=== PATIENT | female | born 1955 | race Caucasian/White ===

== ENCOUNTER 2020-04-04 00:28 | Outpatient (CLI) | payer MEDICARE, SELFPAY ==
[2020-04-04 19:08] LABS: SARS-CoV-2 RNA PCR Negative
== END 2020-04-04 00:29 | disposition home or self-care (01) ==
LOC: ANHCOVIDDT 00:29
PROVIDERS: PCP Nurse Practitioner Adult Health; Visit Provider Internal Medicine Gastroenterology
DX: Z01.812 Encounter for preprocedural laboratory examination (principal); Z11.59 Encounter for screening for other viral diseases
CPT/HCPCS: 87635; C9803; U0003

== ENCOUNTER 2020-04-06 01:04 | Day surgery (SDC) | payer MEDICARE, SELFPAY ==
[2020-03-30 11:25] VITALS: BMI 26.2
[2020-04-06 09:51] VITALS: BP 157/71; PULSE 73; RESP 18; TEMP 36.9; O2SAT 98; BMI 26.2
[2020-04-06] MEDS: LACTATED RINGERS 1,000 ML 150 ML IV CONT (09:59)
--- NOTE | 2020-04-06 10:16 | PM.HPGS ---
History of Present Illness History of Present Illness Consent: Risks, benefits, and alternatives have been discussed and questions answered. Patient agrees to proceed with procedure. Chief complaint: Fam Hx Colon Ca Narrative: Addie Biswas is a 64 year old W female referred for screening colonoscopy secondary family history of colon cancer in her father diagnosed in his 50s. Patient has had 2 previous colonoscopies last 1 6 years ago no polyps were visualized. Patient is asymptomatic. [facility] Past Medical History Medical History (Updated 04/06/20 @ 10:17 by Alfonso Hart MD) Arthritis Depression Hypertension Surgical History Surgical History (Updated 04/06/20 @ 10:17 by Kashif Chavez MD) Status post cholecystectomy Meds Home Medications and Allergies Home Medications Medication Instructions Recorded Confirmed Type atorvastatin 10 mg PO DAILY 03/30/20 03/30/20 History hydrochlorothiazide 12.5 mg PO DAILY 03/30/20 03/30/20 History lisinopril 40 mg PO DAILY 03/30/20 03/30/20 History Allergies Allergy/AdvReac Type Severity Reaction Status Date / Time No Known Allergies Allergy Unknown Verified 04/06/20 09:49 Vital Signs Vital Signs - 24 hr 04/06/20 09:51 Temperature 36.9 C Pulse Rate 73 Respiratory Rate 18 Blood Pressure 157/71 H Pulse Oximetry 98 Exam Const: Orientation/consciousness: patient oriented x3 Resp: Auscultation: clear to auscultation bilaterally Cardio: Rate: regular rate Rhythm: regular rhythm Heart sounds: no murmurs GI: GI Palp: Yes Soft to palpation, No Tenderness to palpation present (GI), Yes No hepatosplenomegaly present and No Palpable mass present Auscultation: normal bowel sounds Neuro: General: patient oriented x3 and no focal motor deficits Extrem: General: no pedal edema Assessment and Plan Additional Plan screening colonoscopy secondary family history colon cancer in her father less than 60 years of age
--- NOTE | 2020-04-06 10:17 | WPDANESEPPF ---
Anes - Initial Pre Proc Eval Procedure: Operation Date: 04/06/20 11:00 Proposed Procedures p Screening Colonoscopy - Kashif Chavez MD Date/Time: 04/06/20 10:17 Surgeon: Kashif Chavez MD Pre Op Diagnosis: Fam Hx Colon Ca Patient Data Age: 64 Gender: F Height: 5 ft 1 in Weight: 62.8 kg Last Vital Signs Temp 98.5 F 04/06/20 09:51 Pulse 73 04/06/20 09:51 Resp 18 04/06/20 09:51 BP 157/71 H 04/06/20 09:51 Pulse Ox 98 04/06/20 09:51 Allergies Allergy/AdvReac Type Severity Reaction Status Date / Time No Known Allergies Allergy Unknown Verified 04/06/20 09:49 Home Medications Medication Instructions Recorded Confirmed Type atorvastatin 10 mg PO DAILY 03/30/20 03/30/20 History hydrochlorothiazide 12.5 mg PO DAILY 03/30/20 03/30/20 History lisinopril 40 mg PO DAILY 03/30/20 03/30/20 History Patient hx anesthesia problems: none Family hx anesthesia problems: none [facility] Past Medical History Medical History (Updated 04/06/20 @ 10:17 by Alfonso Hart MD) Arthritis Depression Hypertension Surgical History Surgical History (Updated 04/06/20 @ 10:17 by Kashif Chavez MD) Status post cholecystectomy Anes - Eval Final PreProcedure Day of Procedure 04/06/20 10:17 Patient weight: normal Heart: regular rate and rhythm Lungs: clear to auscultation Airway: Mallampati scale class II Neurological: alert and oriented Last oral intake: >/= 8 hours ASA classification: II Emergent: no Anesthetic plan: proceed Anesthesia type and monitoring: general GIVS and standard monitoring Informed Consent: The patient's anesthetic plan and its attendant risks and benefits were discussed with the patient/family/POA. Questions were solicited and answers provided to the satisfaction of the patient/family/POA.
[2020-04-06 11:14] VITALS: BP 151/77; PULSE 69; RESP 18; O2SAT 100
[2020-04-06 11:24] VITALS: BP 155/75; PULSE 63; RESP 18; O2SAT 100
[2020-04-06 11:31] VITALS: BP 152/73; PULSE 63; RESP 18; O2SAT 100
== END 2020-04-06 11:40 | disposition home or self-care (01) ==
PROVIDERS: PCP Nurse Practitioner Adult Health; Visit Provider Internal Medicine Gastroenterology
PROC: 0DJD8ZZ Inspection of Lower Intestinal Tract, Via Natural or Artificial Opening Endoscopic (ICD-10-PCS; CPT 45378; principal; 2020-04-06 11:00)
DX: Z12.11 Encounter for screening for malignant neoplasm of colon (principal); D12.3 Benign neoplasm of transverse colon; K57.30 Diverticulosis of large intestine without perforation or abscess without bleeding; K64.8 Other hemorrhoids; Z80.0 Family history of malignant neoplasm of digestive organs; I10 Essential (primary) hypertension; F32.9 Major depressive disorder, single episode, unspecified
CPT/HCPCS: 45385; 88305; J2704; J7120

== ENCOUNTER 2020-09-05 10:10 | Outpatient (NON) | payer MEDICARE, SELFPAY ==
[2020-09-06 12:24] LABS: SARS-CoV-2 RNA PCR Negative
== END 2020-09-05 10:11 ==
LOC: ANHCOVIDDT 10:11
PROVIDERS: PCP Nurse Practitioner Adult Health; Visit Provider Nurse Practitioner Adult Health
DX: R05 Cough (principal); Z20.828 Contact with and (suspected) exposure to other viral communicable diseases
CPT/HCPCS: 87635; C9803; U0003

== ENCOUNTER → 2021-01-05 10:16 | Outpatient (CLI) | payer MEDICARE, SELFPAY ==
--- NOTE | ~2021-01-05 | MM_ITS ---
EXAMINATION: MM screening [facility] BI w demarco HISTORY: Screening TECHNIQUE: Craniocaudal and mediolateral oblique 3-D tomosynthesis images were obtained and synthetic 2-D images were generated. CAD analysis was submitted and interpreted. COMPARISON: Comparison to multiple prior studies sequentially, with oldest reviewed study dated 07/23. BREAST PARENCHYMAL COMPOSITION: There are scattered areas of fibroglandular density. FINDINGS: There is no evidence of suspicious mass, calcification, or architectural distortion to sugg est malignancy in either breast. There has been no suspicious interval change. IMPRESSION: 1. No mammographic evidence of malignancy. 2. Recommend routine screening mammography in one year. BI-RADS Category 1: Negative Reviewed, dictated and finalized at location A.
== END ==
PROVIDERS: PCP Nurse Practitioner Adult Health; Visit Provider Nurse Practitioner Adult Health
DX: Z12.31 Encounter for screening mammogram for malignant neoplasm of breast (principal)
CPT/HCPCS: 77063; 77067

== ENCOUNTER → 2022-01-31 10:10 | Outpatient (CLI) | payer MEDICARE, SELFPAY ==
--- NOTE | ~2022-01-31 | DEXA_ITS ---
Bone Density Report Name: STACY ALEGRIA Age: 66 Sex: Female Ethnicity: White Date of : 1955 Indication: osteopenia; postmenopausal Referring Provider: IvanArely Study: Bone densitometry was performed. Exam Date: January 31, 2022 Accession number: [id number] Bone Density: Region BMD T-score Z-score Classification AP Spine (L1-L4) 0.846 -1.8 0.2 Osteopenia Femoral Neck (Left) 0.709 -1.3 0.4 Osteopenia Total Hip (Left) 0.854 -0.7 0.7 Normal Femoral Neck (Right) 0.734 -1.0 0.7 Normal Total Hip (Right) 0.854 -0.7 0.7 Normal Total Hip Mean 0.854 -0.7 0.7 Normal World Health Organization criteria for BMD impression classify patients as: Normal (T-score at or above -1.0), Osteopenia (T-score between -1.0 and -2.5), or Osteoporosis (T-score at or below -2.5). 10-year Fracture Risk(1): Major Osteoporotic Fracture 9.1% Hip Fracture 0.9% Reported Risk Factors: [place] (), Neck BMD=0.709, BMI=26.6 (1) FRAX(R) Version 3.08. Fracture probability calculated for an untreated patient. Fracture probability may be lower if the patient has received treatment. Previous Exams: Region Exam Age BMD T-score BMD Change BMD Change Date g/cm2 vs Baseline vs Previous AP Spine(L1-L4) 01/31/2022 66 0.846 -1.8 -0.050* 0.001 08/08/2016 61 0.845 -1.8 -0.051* -0.051* 09/07/2008 53 0.896 -1.4 Total Hip(Left) 01/31/2022 66 0.854 -0.7 -0.034* -0.013 08/08/2016 61 0.867 -0.6 -0.022 -0.022 09/07/2008 53 0.889 -0.4 Total Hip(Right) 01/31/2022 66 0.854 -0.7 -0.042* -0.025 08/08/2016 61 0.878 -0.5 -0.017 -0.017 09/07/2008 53 0.896 -0.4 *Denotes significance at 95% confidence level, LSC for AP Spine = 0.022 g/cm2, LSC for Total Hip = 0.027 g/cm2 Clinical Information Provided by Patient: Has used the following medications: Vitamin D Patient maximum height was 61.5 Menopause Age: 46 No regular weight bearing exercise Drinks caffeinated beverages Onset of menses at age 12 Number of children 2 Impression: The patient has low bone mass, based on the Total Spine T-score. The patient has an estimated ten-year risk of hip fracture of 0.9% and an estimated ten-year risk of major fracture of 9.1%, based on the WHO FRAX algorithm. No significant bone loss was observed. Discussion: BONE DENSITY IS LOW AT ONE
--- NOTE | ~2022-01-31 | MM_ITS ---
EXAMINATION: MM screening [facility] BI w demarco HISTORY: Screening TECHNIQUE: Craniocaudal and mediolateral oblique 3-D tomosynthesis images were obtained and synthetic 2-D images were generated. CAD analysis was submitted and interpreted. COMPARISON: Comparison to multiple prior studies sequentially, with oldest reviewed study dated 07/23. BREAST PARENCHYMAL COMPOSITION: There are scattered areas of fibroglandular density. FINDINGS: There is no evidence of suspicious mass, calcification, or architectural distortion to sugg est malignancy in either breast. There has been no suspicious interval change. IMPRESSION: 1. No mammographic evidence of malignancy. 2. Recommend routine screening mammography in one year. BI-RADS Category 1: Negative Reviewed, dictated and finalized at location A.
== END ==
PROVIDERS: PCP Internal Medicine; Visit Provider Internal Medicine
DX: Z12.31 Encounter for screening mammogram for malignant neoplasm of breast (principal); M85.88 Other specified disorders of bone density and structure, other site; M85.852 Other specified disorders of bone density and structure, left thigh; Z78.0 Asymptomatic menopausal state; Z13.820 Encounter for screening for osteoporosis
CPT/HCPCS: 77063; 77067; 77080

== ENCOUNTER 2023-09-24 18:12 | Emergency (ER) | payer MEDICARE, SELFPAY ==
--- NOTE | ~2023-09-24 | XR_ITS ---
EXAMINATION: XR chest 2V DATE: 09/24/2023 18:48 INDICATION: Cough and wheezing. TECHNIQUE: Frontal and lateral views of the chest were obtained. COMPARISON: Chest 2 views 07/30/2015 FINDINGS: There is no pneumonia, pleural effusion, or pneumothorax. The heart size is normal. Surgica l clips in the right upper quadrant are likely from cholecystectomy. IMPRESSION: 1. No acute cardiopulmonary disease. Reviewed, dictated and finalized at location E. 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
--- NOTE | 2023-09-24 18:19 | ED.URI ---
HPI - URI/Sore Throat General Chief Complaint: Upper Respiratory Infection Stated Complaint: cough, wheezing Time Seen by Provider: 09/24/23 18:17 Source: patient Mode of arrival: ambulatory Limitations: no limitations History of Present Illness HPI Narrative: Addie is a 68-year-old female patient presenting to the clinic today with complaints of cough and wheezing since . She reports she is having some slight shortness of breath with a very bad cough. Cough is nonproductive. She denies any known fever or chills. Temperature is 38.1? C in the clinic today MD elicited complaint: cough and other (Wheezing) Related Data Home Medications Medication Instructions Recorded Confirmed atorvastatin 10 mg tablet 10 mg PO DAILY 03/30/20 09/24/23 hydrochlorothiazide 12.5 mg capsule 12.5 mg PO DAILY 03/30/20 09/24/23 lisinopril 40 mg tablet 40 mg PO DAILY 03/30/20 09/24/23 Allergies Allergy/AdvReac Type Severity Reaction Status Date / Time No Known Allergies Allergy Unknown Verified 09/24/23 18:32 Review of Systems Review of Systems: Pertinent positives per HPI. Patient denies any fever, chills, rash, headache, visual changes, dizziness,shortness of breath, chest pain, palpitations, nausea, vomiting, diarrhea, constipation, abdominal pain, or any urinary issues. PMFSH Past Medical History Medical History Arthritis Depression Hypertension Surgical History Surgical History Status post cholecystectomy Comments At the time of my signature, I reviewed and agree with the nursing past medical, surgical, social, and family history. There is no relevant family history pertinent to the patient complaint. Exam Narrative: General: Well-developed, well nourished, in no apparent distress Head: Normocephalic, atraumatic Eyes: Pupils equally round and reactive to light bilaterally, EOM intact, sclera and conjunctive clear, no discharge, lids normal Ears: TMs intact and clear, ear canals clear, no drainage, grossly hearing normal. Nose: Nares patent, no discharge, no inflammation, no sinus tenderness. Mouth: Oral pharynx without lesions or masses, good dentition, MMM. Neck: Supple, trachea midline, no enlargement of anterior or posterior cervical nodes, no thyroid masses or goiter palpable. Cardio: Regular rate and rhythm, s1 and s2 normal, no murmur appreciated. Resp: Rhonchi and wheezing throughout lung tian, no rales or rubs Course Course Emergency Course: Portions of this record may have been created with voice recognition software. Level of Care: Express Care Visit Vital Signs Vital signs: Vital signs reviewed MDM - URI/Sore Throat MDM Narrative Medical decision making narrative: At the time of visit patient is resting comfortably on the exam table. Patient appears to be nontoxic. Chest x-rays negative for any sign pneumonia. I suspect patient has acute bronchitis. Prescription for prednisone, albuterol inhaler, supportive measures were discussed with the patient and they voiced understanding discharge instructions and agrees to treatment plan. Return precautions reviewed Differential Diagnosis Differential diagnosis: Likely upper respiratory infection, otitis media, sinusitis, viral infection, bronchitis, influenza, pharyngitis and other (COVID) Discharge Plan Discharge Clinical Impression: Bronchitis Patient Disposition: Home, Self-Care Condition: Stable Instructions: Antibiotic Form, Acute Bronchitis (ED) Additional Instructions: Chest x-rays negative for any sign of pneumonia. Take prescription medications only as prescribed-prednisone, albuterol inhaler, and mucinex Increase fluids and stay well hydrated Tylenol/motrin for pain/fever Flonase and OTC antihistamines as directed Vicks vapor rub to open sinuses Sinus rinses for congestion
[2023-09-24 18:28] VITALS: BP 191/80; PULSE 107; RESP 16; TEMP 38.1; O2SAT 96
[2023-09-24 18:30] VITALS: PULSE 107; RESP 22; O2SAT 96
[2023-09-24] MEDS: ALBUTEROL SULFATE NEB 2.5 MG/3 ML INH INHALATION (18:49)
[2023-09-24] MEDS: IPRATROPIUM BR 0.02% INH SOLN 0.5 MG/2.5 ML VIAL INHALATION (18:50)
[2023-09-24 19:15] VITALS: PULSE 100; RESP 16; O2SAT 98
== END 2023-09-24 19:26 | disposition home or self-care (01) ==
PROVIDERS: Emergency Provider Nurse Practitioner Family; PCP Internal Medicine
DX: J40 Bronchitis, not specified as acute or chronic (principal); I10 Essential (primary) hypertension; M19.90 Unspecified osteoarthritis, unspecified site
CPT/HCPCS: 71046; 94640; 99213; G0463

== ENCOUNTER 2024-02-25 08:35 | Outpatient (CLI) | payer MEDICARE, SELFPAY ==
--- NOTE | ~2024-02-25 | DEXA_ITS ---
Bone Density Report Name: STACY ALEGRIA Age: 68 Sex: Female Ethnicity: White Date of : 1955 Indication: postmenopausal; screening for osteoporosis; history of glucocorticoids; Referring Provider: LARRYGINI Study: Bone densitometry was performed. Exam Date: February 25, 2024 Accession number: [id number] Bone Density: Region BMD T-score Z-score Classification AP Spine(L1-L4) 0.884 -1.5 0.7 Osteopenia Femoral Neck (Left) 0.715 -1.2 0.6 Osteopenia Total Hip (Left) 0.908 -0.3 1.3 Normal Femoral Neck (Right) 0.720 -1.2 0.7 Osteopenia Total Hip (Right) 0.947 0.0 1.6 Normal Total Hip Mean 0.928 -0.2 1.5 Normal World Health Organization criteria for BMD impression classify patients as: Normal (T-score at or above -1.0), Osteopenia (T-score between -1.0 and -2.5), or Osteoporosis (T-score at or below -2.5). 10-year Fracture Risk(1): Major Osteoporotic Fracture 15% Hip Fracture 2.0% Reported Risk Factors: [place] (), Neck BMD=0.715, BMI=28.0, glucocorticoids (1) FRAX(R) Version 3.08. Fracture probability calculated for an untreated patient. Fracture probability may be lower if the patient has received treatment. Clinical Information Provided by Patient: Has taken Glucocorticoids Has used the following medications: Vitamin D, Calcium Patient maximum height was 61.5 Menopause Age: 46 No regular weight bearing exercise Does not regularly consume dairy products Drinks caffeinated beverages Onset of menses at age 12 Number of children 2 Impression: The patient has low bone mass, based on the Total Spine T-score. The patient has an estimated ten-year risk of hip fracture of 2% and an estimated ten-year risk of major fracture of 15%, based on the WHO FRAX algorithm. The patient has risk factors, including: history of glucocorticoid therapy. Discussion: BONE DENSITY IS LOW AT ONE OR MORE SKELETAL SITES. This patient's lowest T-score is low at one or more skeletal sites. It meets the World Health Organization's (WHO) criteria for ?low bone mass? (T-score between -1.0 and -2.5). The patient's 10-year risk of fracture as calculated by FRAX is less than the threshold where pharmacological therapy is recommended by the National Osteoporosis Foundation (NOF). However, all treatment decisions require clinical judgment and consideration of individual patient factors, including patient preferences, comorbidities, previous drug use, risk factors not captured in the FRAX model (e.g., frailty, falls, vitamin D deficiency, increased bone turnover, interval significant decline in bone density) and possible under or overestimation of fracture risk by FRAX. The patient should follow a healthful lifestyle (good nutrition with adequate calcium and vitamin D, and appropriate weight-bearing exercise). Follow-Up: Consider repeating this study in 2 to 3 years to reass
--- NOTE | ~2024-02-25 | MM_ITS ---
EXAMINATION: MM screening [facility] BI w demarco HISTORY: Screening TECHNIQUE: Craniocaudal and mediolateral oblique 3-D tomosynthesis images were obtained and synthetic 2-D images were generated. CAD analysis was submitted and interpreted. COMPARISON: Comparison to multiple prior studies sequentially, with oldest reviewed study dated 07/23. BREAST PARENCHYMAL COMPOSITION: Not dense: There are scattered areas of fibroglandular density. FINDINGS: There is no evidence of suspicious mass, calcification, or architectural distortion to sugg est malignancy in either breast. There has been no suspicious interval change. IMPRESSION: 1. No mammographic evidence of malignancy. 2. Recommend routine screening mammography in one year. BI-RADS Category 1: Negative Reviewed, dictated and finalized at location B.
== END 2024-02-25 08:36 | disposition home or self-care (01) ==
LOC: ANHIMG 08:39
PROVIDERS: PCP Internal Medicine; Visit Provider Internal Medicine
DX: Z12.31 Encounter for screening mammogram for malignant neoplasm of breast (principal); M85.89 Other specified disorders of bone density and structure, multiple sites; Z78.0 Asymptomatic menopausal state; Z13.820 Encounter for screening for osteoporosis
CPT/HCPCS: 77063; 77067; 77080

== ENCOUNTER 2025-03-22 12:04 | Emergency (ER) | payer MEDICARE, SELFPAY ==
[2025-03-22 12:11] VITALS: BP 160/67; PULSE 74; RESP 16; TEMP 36.6; O2SAT 95
--- NOTE | 2025-03-22 12:50 | ED.SKABFB ---
HPI - Skin/Abscess/Foreign Bdy General Chief complaint: Skin/Abscess/Foreign Body Stated complaint: pulled a tick off back Time Seen by Provider: 03/22/25 12:25 Source: patient and RN notes reviewed Mode of arrival: ambulatory Limitations: no limitations History of Present Illness HPI narrative: 69-year-old female presents Express Care complaining of tick bite to left lower back patient said she noticed it Friday evening. Patient is unsure how long the tick was on her but states she likely got bit at her son's house states he was across the street from her. Patient is able remove the tick and brought the tick in to be examined. Patient reports the tick bite is pruritic but denies any pain. Patient denies any bull's eye rash, fatigue, malaise, increased lethargy, headache, neck stiffness, myalgias, joint pain, swollen lymph nodes, fevers, full-body rash, or any other symptoms. Patient is worried about Lyme disease. Patient has in a done any recent travel or hiking or has traveled to any endemic areas of Lyme disease. Related Data Home Medications ?Medication ?Instructions ?Recorded ?Confirmed ?Last Taken ?Type atorvastatin 10 mg tablet 10 mg PO DAILY 03/30/20 09/24/23 04/05/20 History hydrochlorothiazide 12.5 mg capsule 12.5 mg PO DAILY 03/30/20 09/24/23 04/05/20 History lisinopril 40 mg tablet 40 mg PO DAILY 03/30/20 09/24/23 04/05/20 History Allergies Allergy/AdvReac Type Severity Reaction Status Date / Time No Known Allergies Allergy Unknown Verified 03/22/25 12:15 Review of Systems Review of Systems: CONSTITUTIONAL: Denies fever, body aches, chills, or sweats. EYES: Denies visual changes, redness, or discharge. ENT: Denies rhinorrhea, congestion, sore throat, or otalgia. CARDIOVASCULAR: Denies chest pain, palpitations, or edema. RESPIRATORY: Denies cough or dyspnea. GASTROINTESTINAL: Denies abdominal pain, nausea, vomiting, or diarrhea. GENITOURINARY: Denies dysuria or hematuria. SKIN: Denies rash or itching. Positive for tick bite. MUSCULOSKELETAL: Denies back pain, joint pain, or myalgia. NEUROLOGIC: Denies headache, numbness, or weakness. PSYCHIATRIC: Denies anxiety or depression. All other systems reviewed are negative, except as documented in HPI. [facility] Past Medical History Medical History Depression Arthritis Hypertension Surgical History Surgical History Status post cholecystectomy Comments At the time of my signature, I reviewed and agree with the nursing past medical, surgical, social, and family history. There is no relevant family history pertinent to the patient complaint. Exam Narrative: GENERAL: This is a well-nourished, well-developed adult, in no apparent distress. They are non ill-appearing, nontoxic appearing. HEAD: normocephalic, atraumatic. EYES: Sclera clear/white. Conjunctiva normal. Vision is grossly intact. Extraocular movements intact EARS: External ears normal, Hearing grossly intact. NOSE: External nose normal THROAT: Mucous membranes moist, NECK: Neck supple CARDIOVASCULAR: Regular rate and rhythm RESPIRATORY: Respiratory rate normal, respiratory effort nonlabored, no respiratory distress SKIN: No rash or suspicious lesions. Skin warm dry pink. Lower back: There is a erythematous, pruritic puncture wound or in the left lateral lower back. Puncture Wound is measuring approximately 1.5 cm x 1.5 cm. Nontender to palpate. No induration, or area of fluctuance, no exudate. No central clearing puncture wound. No bull's eye rash.. NEURO: awake, alert, and oriented to person, place and time. There were no obvious focal neurologic abnormalities. EXTREMITIES: No joint tenderness, effusion, or edema noted. BACK: Nontender without deformity. Course Course Emergency Course: Portions of this record may have been created with voice recognition software Level of Care: Express Care Visit Vital Signs Vital signs: Vital Signs Temperature 97.9 F 03/22/25 12:11 Pulse Rate 74 03/22/25 12:11 Respiratory Rate 16 03/22/25 12:11 Blood Pressure 160/67 H 03/22/25 12:11 Pulse Oximetry 95 03/22/25 12:11 Oxygen Delivery Room Air 03/22/25 12:11 Temperature 97.9 F 03/22/25 12:11 Pulse Rate 74 03/22/25 12:11 Respiratory Rate 16 03/22/25 12:11 Blood Pressure 160/67 H 03/22/25 12:11 Pulse Oximetry 95 03/22/25 12:11 Oxygen Delivery Room Air 03/22/25 12:11 Reviewed MDM - Skin/Abscess/Foreign Bdy MDM Narrative Medical decision making narrative: Examination a tick does show characteristics of a deer tick. Patient was not in an endemic area of Lyme disease when she was bit by a tick. Patient is currently asymptomatic. Patient is unsure how long take was imbedded to her skin. No bull's eye rash present or systemic signs. No suspicious rash. Low suspicion of Lyme disease. Patient is currently in the window for prophylactic dose of doxycycline. Through shared decision making, offered dose or close observation of rash, and she elected to go ahead and take a 1 time dose of doxycycline. Will send doxycycline over to patient's pharmacy. Discussed physical exam findings. Advised supportive measures and signs/symptoms to go to the ER. Pt is appropriate for outpt treatment and f/u. Differential Diagnosis Differential diagnosis: Likely cellulitis, insect bites, impetigo and other (Tick bite, Lyme disease,) Critical Care Time Critical Care Time Critical Care Time: No Discharge Plan Discharge Clinical Impression: Tick bite of back Qualifiers: Encounter type: initial encounter Qualified Code(s): S30.860A - Insect bite (nonvenomous) of lower back and pelvis, initial encounter Patient Disposition: Home Condition: Stable Instructions: Antibiotic Form, Lyme Disease (ED), Tick Bite (ED) Additional Instructions: Take a 1 time dose of doxycycline. Please wear sunscreen while taking doxycycline if her going to be outside. Is likely allergic reaction from the tick bite. He may apply [id number] hydrocortisone or calamine lotion to help with itchiness symptoms. Also take Zyrtec or Claritin as needed for itchiness symptoms. Wash the wound daily with mild soap and water. Avoid scratching the affected area as this may increase the risk of a secondary infection. A secondary skin infection would include worsening redness, swelling, pain, green/yellow discharge, of the skin becomes hot to touch. Please monitor the tick bite closely. Please follow-up with PCP in 3-5 days. Please go to the ER immediately if you developed a bull's-eye rash near the tick bite, full body rash, swollen lymph nodes headache, neck stiffness, fatigue, malaise, muscle aches, joint pain, fevers, or any other concerns. Patient Language: Faroese Prescriptions: New doxycycline monohydrate 100 mg capsule 200 mg PO ONCE 1 Days Qty: 2 0RF No Action prednisone 20 mg tablet 40 mg PO DAILY 5 Days Qty: 10 0RF albuterol sulfate 90 mcg/actuation HFA aerosol inhaler 2 puff inhalation Q4-6H PRN (Reason: shortness of breath or wheezing) 30 Days Qty: 8.5 0RF guaifenesin [Mucinex] 600 mg tablet extended release 12hr 600 mg PO BID 7 Days Qty: 14 0RF atorvastatin 10 mg tablet 10 mg PO DAILY hydrochlorothiazide 12.5 mg capsule 12.5 mg PO DAILY lisinopril 40 mg tablet 40 mg PO DAILY Follow-up/Referrals: Ivan,MD Arely [Primary Care Provider] - Time of Disposition: 12:43
== END 2025-03-22 12:45 | disposition home or self-care (01) ==
PROVIDERS: PCP Internal Medicine
DX: S30.860A Insect bite (nonvenomous) of lower back and pelvis, initial encounter (principal); W57.XXXA Bitten or stung by nonvenomous insect and other nonvenomous arthropods, initial encounter; I10 Essential (primary) hypertension; M19.90 Unspecified osteoarthritis, unspecified site
CPT/HCPCS: 99213; G0463

== ENCOUNTER 2025-03-25 09:44 | Emergency (ER) | payer MEDICARE, SELFPAY ==
[2025-03-25 09:54] VITALS: BP 170/81; PULSE 68; RESP 18; TEMP 36.6; O2SAT 99
--- NOTE | 2025-03-25 10:20 | ED.GENADULT ---
HPI - General Adult General Chief complaint: Skin/Abscess/Foreign Body Stated complaint: Insect Bite Source: patient Mode of arrival: ambulatory Limitations: no limitations History of Present Illness HPI narrative: Patient presents for evaluation of what she believes to be an insect bite/ sting to the right upper arm. Symptom onset 2 days ago. She felt a sting in the affected area and now has associated itching and redness. Her symptoms are worsening. She denies any fever, chills, difficulty breathing or swallowing. She is not taking any medication to assist with her symptoms. Related Data Home Medications ?Medication ?Instructions ?Recorded ?Confirmed ?Last Taken ?Type atorvastatin 10 mg tablet 10 mg PO DAILY 03/30/20 09/24/23 04/05/20 History hydrochlorothiazide 12.5 mg capsule 12.5 mg PO DAILY 03/30/20 09/24/23 04/05/20 History lisinopril 40 mg tablet 40 mg PO DAILY 03/30/20 09/24/23 04/05/20 History Allergies Allergy/AdvReac Type Severity Reaction Status Date / Time No Known Allergies Allergy Unknown Verified 03/25/25 09:50 Review of Systems Review of Systems: CONSTITUTIONAL: Denies fever, chills, or sweats. EYES: Denies visual changes, redness, or discharge. ENT: Denies rhinorrhea, congestion, sore throat, or otalgia. CARDIOVASCULAR: Denies chest pain, palpitations, or edema. RESPIRATORY: Denies cough or dyspnea. GASTROINTESTINAL: Denies abdominal pain, nausea, vomiting, or diarrhea. GENITOURINARY: Denies dysuria or hematuria. SKIN: Reports redness and itching to the right upper arm. MUSCULOSKELETAL: Denies back pain, joint pain, or myalgia. NEUROLOGIC: Denies headache, numbness, dizziness, or weakness. PSYCHIATRIC: Denies anxiety or depression. [facility] Past Medical History Medical History Depression Arthritis Hypertension Surgical History Surgical History Status post cholecystectomy Family History Family History Mother Family history non-contributory Social History Social History Gender identity (if verbalized by the patient): Female Spiritual care concerns: No Exam Narrative: GENERAL: Well-appearing, well-nourished, and in no acute distress. HEAD: Normocephalic, atraumatic. EYES: PERRLA and EOMI. ENT: Nares clear, no rhinorrhea or epistaxis. Mucous membranes moist. Oropharynx without tonsillar hypertrophy exudate or other lesions. Bilateral TMs pearly ruelas nonbulging NECK: Supple. No adenopathy or masses. No carotid bruits or JVD CHEST: Clear to auscultation. No respiratory distress. No wheezes rales or rhonchi HEART: Regular rate and rhythm. No murmur heard. Normal peripheral pulses. ABDOMEN: Soft, nontender, nondistended, normal active bowel sounds. EXTREMITIES: Normal range of motion. No edema. SKIN: There was a 12 x 8 cm area of erythema to the posterior aspect of the right upper arm, with associated warmth NEURO: No focal deficits. Alert and oriented x3. PSYCH: Normal mood and affect. Course Course Emergency Course: This is a 69-year-old female who presented for evaluation of redness, swelling, itching and warmth to the right upper arm after which she believes to be an insect bite or sting. Will discharge with cephalexin and Medrol Dosepak. Benadryl should help with itching and redness. She should follow-up with her primary care provider and go to the emergency department for worsening symptoms. Patient in agreement with plan of care. Level of Care: Express Care Visit Vital Signs Vital signs: Vital Signs Temperature 36.6 C 03/25/25 09:54 Pulse Rate 68 03/25/25 09:54 Respiratory Rate 18 03/25/25 09:54 Blood Pressure 170/81 H 03/25/25 09:54 Pulse Oximetry 99 03/25/25 09:54 Oxygen Delivery Room Air 03/25/25 09:54 Temperature 36.6 C 03/25/25 09:54 Pulse Rate 68 03/25/25 09:54 Respiratory Rate 18 03/25/25 09:54 Blood Pressure 170/81 H 03/25/25 09:54 Pulse Oximetry 99 03/25/25 09:54 Oxygen Delivery Room Air 03/25/25 09:54 Medical Decision Making Vital Signs Vital Signs: Vital Signs Temperature 36.6 C 03/25/25 09:54 Pulse Rate 68 03/25/25 09:54 Respiratory Rate 18 03/25/25 09:54 Blood Pressure 170/81 H 03/25/25 09:54 Pulse Oximetry 99 03/25/25 09:54 Oxygen Delivery Room Air 03/25/25 09:54 Temperature 36.6 C 03/25/25 09:54 Pulse Rate 68 03/25/25 09:54 Respiratory Rate 18 03/25/25 09:54 Blood Pressure 170/81 H 03/25/25 09:54 Pulse Oximetry 99 03/25/25 09:54 Oxygen Delivery Room Air 03/25/25 09:54 Discharge Plan Discharge Clinical Impression: Insect bite Patient Disposition: Home Condition: Stable Instructions: Antibiotic Form, Insect Bite or Sting (ED) Additional Instructions: BENADRYL SHOULD HELP WITH REDNESS, SWELLING AND ITCHING Patient Language: Croatian Prescriptions: New cephalexin 500 mg capsule 500 mg PO Q6H 10 Days Qty: 40 0RF methylprednisolone [Medrol (Vahe)] 4 mg tablets,dose pack See Rx Instructions .ROUTE .COMPLEX Qty: 21 0RF Rx Instructions: for 6 days No Action prednisone 20 mg tablet 40 mg PO DAILY 5 Days Qty: 10 0RF albuterol sulfate 90 mcg/actuation HFA aerosol inhaler 2 puff inhalation Q4-6H PRN (Reason: shortness of breath or wheezing) 30 Days Qty: 8.5 0RF guaifenesin [Mucinex] 600 mg tablet extended release 12hr 600 mg PO BID 7 Days Qty: 14 0RF doxycycline monohydrate 100 mg capsule 200 mg PO ONCE 1 Days Qty: 2 0RF atorvastatin 10 mg tablet 10 mg PO DAILY hydrochlorothiazide 12.5 mg capsule 12.5 mg PO DAILY lisinopril 40 mg tablet 40 mg PO DAILY Follow-up/Referrals: Ivan,MD Arely [Primary Care Provider] - Time of Disposition: 10:18
== END 2025-03-25 10:25 | disposition home or self-care (01) ==
PROVIDERS: Emergency Provider Nurse Practitioner; PCP Internal Medicine
DX: S40.861A Insect bite (nonvenomous) of right upper arm, initial encounter (principal); W57.XXXA Bitten or stung by nonvenomous insect and other nonvenomous arthropods, initial encounter; I10 Essential (primary) hypertension; M19.90 Unspecified osteoarthritis, unspecified site
CPT/HCPCS: 99213; G0463